=== PATIENT | female | born 1940 | race Caucasian/White ===

== ENCOUNTER → 2016-07-16 | Outpatient (CLI) | payer OTHER, BC ==
--- NOTE | 2016-07-16 09:37 | DIAGNOSTIC IMAGING REPORT ---
CHEST 2 VIEWS ROUTINE CLINICAL HISTORY: Persistent cough COMPARISON STUDY: No previous studies for comparison. FINDINGS: The cardiac and mediastinal contours are normal. There is no evidence of focal pulmonary consolidation. There is no evidence of failure. No pleural effusions are visualized.[ There is a mild scoliosis. The patient is mildly hyperinflated. IMPRESSION: No active disease in the chest. Electronically signed by: Mihai Nation M.D. 07/16/2016 9:35 AM Dictated Date/Time: 07/16/2016 9:35 AM
== END ==
LOC: C.RADBC 09:14
PROVIDERS: ATTEND Internal Medicine
DX: R05 Cough (principal)

== ENCOUNTER 2017-05-08 12:50 | Emergency (ER) | payer OTHER, BC ==
[~2017-05-08] VITALS: Ht 167.6 cm; Wt 60.3 kg
[2017-05-08 12:53] VITALS: Ht 167.6 cm; Wt 60.3 kg
--- NOTE | 2017-05-08 13:27 | EMERGENCY ROOM VISIT NOTE ---
History Report prepared by Violeta: Azra Kay Under the Supervision of: Dr. Lc Dunn M.D. First contact with patient: 12:59 Chief Complaint: FALL Stated Complaint: RIGHT SHOULDER PAIN FROM FALL History of Present Illness The patient is a 76 year old female who presents to the Emergency Room with complaints of an episode of fall around 12 hours ago. The patient had had some wine prior to bed yesterday. She got up around 12 hours ago and was feeling woozy. She fell onto her right arm. She has had pain in her right shoulder and has been unable to move her right arm. She denies any head injury or back pain. She denies any other injuries. She notes that she was diaphoretic and shaking after the fall. Source of History: patient Onset: 12 hours ago Position: other (global) Quality: other (fall) Timing: other (episodic) Associated Symptoms: + diaphoresis, No headache, No back pain Note: Pt reports shaking, right shoulder pain. Review of Systems See HPI for pertinent positives & negatives. A total of 10 systems reviewed and were otherwise negative. Past Medical & Surgical Medical Problems: (1) Hypothyroidism Family History No pertinent family history stated. Social History Smoking Status: Never Smoker Marital Status: single Occupation Status: retired Current/Historical Medications Scheduled Calcium Ascorbate (Vitamin C), 500 MG PO DAILY Calcium Carbonate-Cholecalcife (Caltrate 600+D), 1 TAB PO DAILY Levothyroxine Sodium (Levothyroxine Sodium), 0.5 TAB PO DAILY Liothyronine Sodium (Cytomel), 1 TAB PO DAILY Multivitamin (Multivitamin), 1 TAB PO DAILY Vitamin E (Vitamin E 100 Iu), 100 INTER.UNIT PO DAILY Allergies Coded Allergies: Codeine (Verified Adverse Reaction, Unknown, GI SYMPTOMS, 05/08/17) Physical Exam Vital Signs Date Time Temp Pulse Resp B/P (MAP) Pulse Ox O2 Delivery O2 Flow Rate FiO2 05/08/17 12:53 36.6 83 18 150/86 99 Room Air Physical Exam GENERAL: Patient is in no acute distress. HEENT: No acute trauma, normocephalic atraumatic, mucous membranes moist, no nasal congestion, no scleral icterus. NECK: No stridor, no adenopathy, no meningismus, trachea is midline. LUNGS: Clear to auscultation bilaterally, no wheeze, no rhonchi, breath sounds equal. HEART: Without murmurs gallops or rubs, regular rate and rhythm. ABDOMEN: Soft, nontender, bowel sounds positive, no hernias, no peritonitis. EXTREMITIES: Edema and contusion to the right shoulder. Entire shoulder especially along the anterior aspect is tender. Clinically there is no evidence for dislocation. Strong distal right radial pulse. NVI distally in the left and right upper extremity. Right elbow nontender. NEUROLOGIC: Oriented x 3, no acute motor or sensory deficits, no focal weakness. SKIN: No rash, no jaundice, no diaphoresis. Medical Decision & Procedures ER Provider Diagnostic Interpretation: X-ray results as stated below per interpretation by me and the radiologist: SINGLE VIEW CHEST CLINICAL HISTORY: Fall with right shoulder fracture. FINDINGS: An AP, portable, supine chest radiograph is compared to study dated 07/16/2016. The examination is degraded by portable technique and patient rotation. The cardiomediastinal silhouette is unremarkable. There is atherosclerotic calcification of the thoracic aorta. The lungs and pleural spaces are clear. No pneumothorax is seen. The skeletal structures are osteopenic. Mild degenerative change and scoliosis are noted in the thoracic spine. There is a distracted fracture through the right humeral neck. IMPRESSION: 1. There is no acute cardiopulmonary abnormality. 2. A distracted fracture is identified through the right humeral neck. Electronically signed by: Lc Young M.D. 05/08/2017 1:58 PM Dictated Date/Time: 05/08/2017 1:56 PM RIGHT HUMERUS 2 VIEWS; RIGHT SHOULDER 2 VIEWS CLINICAL HISTORY: Fall with right arm injury. FINDINGS: AP and lateral views of the right humerus with AP and lateral views of the right shoulder are obtained. No prior studies are available for comparison at the time of dictation. The skeletal structures are osteopenic. There is a distracted fracture through the humeral neck with medial distraction of the humeral shaft. The humeral head remains within the glenoid fossa. The acromioclavicular joint is preserved. The distal humerus appears intact and the elbow joint is grossly maintained. Soft tissue edema is present in the right upper extremity. The visualized right lung parenchyma appears clear. IMPRESSION: 1. There is a distracted fracture through the right humeral neck as above with overlying soft tissue edema. 2. The distal humerus is intact. Electronically signed by: Lc Young M.D. 05/08/2017 1:57 PM Dictated Date/Time: 05/08/2017 1:54 PM ED Course 1301: The patient was evaluated in room B12B. A complete history and physical exam was performed. 1406: I discussed the patient's case with Dr. De Anda, [facility] - orthopedic surgery. He recommends the patient be discharged home with a sling and a swathe to follow up as an outpatient. 1410: I reevaluated the patient. I discussed results and discharge instructions : she verbalized understanding and agreement. The patient is ready for discharge. Medical Decision Differential diagnoses considered include dislocation, fracture, sprain, contusion, rib injury, clavicle injury, neurovascular compromise. The patient presents after falling last evening. She complains of right shoulder pain. The area is contused and swollen. There is pain with movement of the shoulder in any direction. On exam, there was no clinical evidence for right shoulder dislocation. She had a strong distal right radial pulse and was neurovascularly intact distally in the right upper extremity. I found no evidence for injury elsewhere on exam. Films of the right shoulder and humerus were done, there is a right humeral neck fracture which is distracted and overriding. There is no evidence for shoulder dislocation. Chest film does not show evidence for rib fracture, pneumothorax or pulmonary contusion. The patient did not want anything for pain. She was placed in a sling and swath. I discussed the case with orthopedics. They felt that she could be discharged with outpatient follow-up. The patient was comfortable with this plan. She again, wants no pain medication. She was encouraged to return if worsening. Ice to the shoulder was encouraged. Medication Reconcilliation Current Medication List: was personally reviewed by me Blood Pressure Screening Patient's blood pressure: Elevated blood pressure Blood pressure disposition: Elevated BP felt to be situational Consults Time Called: 1401 Consulting Physician: Dr. De Anda, [facility] - orthopedic surgery Returned Call: [phone] I discussed the patient's case with him. He recommends the patient be discharged home with a sling and a swathe to follow up as an outpatient. Impression Primary Impression: Fracture of neck of right humerus Scribe Attestation The scribe's documentation has been prepared under my direction and personally reviewed by me in its entirety. I confirm that the note above accurately reflects all work, treatment, procedures, and medical decision making performed by me. Departure Information Dispostion Home / Self-Care Referrals Lalito Esqueda M.D. (PCP) Fidencio Dyer D.O. Forms HOME CARE DOCUMENTATION FORM, IMPORTANT VISIT INFORMATION Patient Instructions My [facility] Additional Instructions tylenol for pain wear the sling and swath all the time ice to the shoulder for 30 minutes on and 30 minutes off call orthopedics tomorrow am for an appt to be seen for this fracture return if worsening
[2017-05-08] MEDS ORDERED: VITA100C2 PO (13:31)
[2017-05-08] MEDS ORDERED: LEVO112T4 PO (13:31)
[2017-05-08] MEDS ORDERED: VITACAP37 PO (13:31)
[2017-05-08] MEDS ORDERED: MULT-506 PO (13:31)
[2017-05-08] MEDS ORDERED: LIOT1TAB10 PO (13:31)
[2017-05-08] MEDS ORDERED: CALC500T72 PO (13:31)
[2017-05-08] MEDS ORDERED: CALC-354 PO (13:32)
--- NOTE | 2017-05-08 13:58 | DIAGNOSTIC IMAGING REPORT ---
RIGHT HUMERUS 2 VIEWS; RIGHT SHOULDER 2 VIEWS CLINICAL HISTORY: Fall with right arm injury. FINDINGS: AP and lateral views of the right humerus with AP and lateral views of the right shoulder are obtained. No prior studies are available for comparison at the time of dictation. The skeletal structures are osteopenic. There is a distracted fracture through the humeral neck with medial distraction of the humeral shaft. The humeral head remains within the glenoid fossa. The acromioclavicular joint is preserved. The distal humerus appears intact and the elbow joint is grossly maintained. Soft tissue edema is present in the right upper extremity. The visualized right lung parenchyma appears clear. IMPRESSION: 1. There is a distracted fracture through the right humeral neck as above with overlying soft tissue edema. 2. The distal humerus is intact. Electronically signed by: Lc Young M.D. 05/08/2017 1:57 PM Dictated Date/Time: 05/08/2017 1:54 PM
--- NOTE | 2017-05-08 13:59 | DIAGNOSTIC IMAGING REPORT ---
SINGLE VIEW CHEST CLINICAL HISTORY: Fall with right shoulder fracture. FINDINGS: An AP, portable, supine chest radiograph is compared to study dated 07/16/2016. The examination is degraded by portable technique and patient rotation. The cardiomediastinal silhouette is unremarkable. There is atherosclerotic calcification of the thoracic aorta. The lungs and pleural spaces are clear. No pneumothorax is seen. The skeletal structures are osteopenic. Mild degenerative change and scoliosis are noted in the thoracic spine. There is a distracted fracture through the right humeral neck. IMPRESSION: 1. There is no acute cardiopulmonary abnormality. 2. A distracted fracture is identified through the right humeral neck. Electronically signed by: Lc Young M.D. 05/08/2017 1:58 PM Dictated Date/Time: 05/08/2017 1:56 PM
[2017-05-08 14:41] VITALS: BP 150/86; PULSE 83; TEMP 36.6; O2SAT 99
[2017-05-16] MEDS ORDERED: [UNRECOGNIZED DRUG - OTHER] PO (15:37)
[2017-05-16] MEDS ORDERED: ACET-1256 PO (15:39)
[2017-05-16] MEDS ORDERED: NAPR1TAB9 PO (15:39)
== END 2017-05-08 14:45 | disposition home or self-care (01) ==
LOC: C.EDB 12:51
DX: S42.201A Unspecified fracture of upper end of right humerus, initial encounter for closed fracture (principal); W19.XXXA Unspecified fall, initial encounter; E03.9 Hypothyroidism, unspecified; R03.0 Elevated blood-pressure reading, without diagnosis of hypertension

== ENCOUNTER 2017-05-18 10:10 | Inpatient (IN) | payer OTHER, BC ==
--- NOTE | 2017-05-16 12:49 | DIAGNOSTIC IMAGING REPORT ---
CHEST 2 VIEWS ROUTINE CLINICAL HISTORY: CLOSED FRACTURE OF SURGICAL NECK OF HUMERUS trauma COMPARISON STUDY: 05/08/2017 FINDINGS: Unchanged distracted/displaced fracture of the humeral neck on the right. Lungs remain clear. Diaphragms are smooth. Moderate Baseline emphysematous change. IMPRESSION: Displaced fracture right femoral neck. Moderate emphysematous change. No acute infiltrate. The above report was generated using voice recognition software. It may contain grammatical, syntax or spelling errors. Electronically signed by: Wally Hook M.D. 05/16/2017 12:48 PM Dictated Date/Time: 05/16/2017 12:46 PM
[2017-05-16 13:27] LABS: BASO % 0.6 %; BASO ABS # 0.03 K/uL (0-0.2); EOS % 1.6 %; EOS ABS # 0.08 K/uL (0-0.5); HEMATOCRIT 38.9 % (37-47); HEMOGLOBIN 12.9 g/dL (12.0-16.0); IG# 0.01 K/uL (0.00-0.02); LYMPH ABS # 1.11 K/uL (1.2-3.4); MEAN CELL VOLUME 92.6 fL (80-100); MEAN CORPUSCULAR HEMOGLOBIN 30.7 pg (25-34); MEAN CORPUSCULAR HGB CONC 33.2 g/dl (32-36); MEAN PLATELET VOLUME 9.4 fL (7.4-10.4); MONO % 8.1 %; MONO ABS # 0.41 K/uL (0.11-0.59); NEUT % 67.5 %; PLATELET COUNT 302 K/uL (130-400); RED CELL DISTRIBUTION WIDTH CV 13.6 % (11.5-14.5); RED CELL DISTRIBUTION WIDTH SD 45.7 fL (36.4-46.3); WHITE BLOOD COUNT 5.04 K/uL (4.8-10.8)
[2017-05-16 13:42] LABS: BLOOD UREA NITROGEN 19 mg/dl (7-18); CARBON DIOXIDE 29 mmol/L (21-32); GLUCOSE 91 mg/dl (70-99); SODIUM 137 mmol/L (136-145)
[2017-05-18] VITALS (9 sets, daily range): BP systolic 109–159; BP diastolic 65–77; PULSE 61–71; TEMP 36.3–36.8; O2SAT 95–100; Ht 167.6 cm; Wt 57.7 kg
[~2017-05-18] VITALS: Ht 167.6 cm; Wt 57.7 kg
--- NOTE | 2017-05-18 07:00 | HISTORY & PHYSICAL EXAMINATION ---
DATE OF ADMISSION: 05/18/2017 CHIEF COMPLAINT: Right proximal humerus fracture. HISTORY OF PRESENT ILLNESS: Emily is a pleasant 76-year-old female who fell at home about a week ago and landed on her right side. She had severe shoulder pain, went to [facility] Emergency Room on where x-rays showed a significantly displaced right proximal humerus fracture. They placed her in a arm sling. and she came to my office. She lives at home at home alone and she is still very functional. Given the amount of displacement of the fracture and after discussions with her, she elected to proceed with an open reduction internal fixation of the proximal humerus. PAST MEDICAL HISTORY: Significant for hypothyroidism and hyperlipidemia. PAST SURGICAL HISTORY: Significant for lymph node excision. ALLERGIES: CODEINE. MEDICATIONS: Levoxyl, and Cytomel. FAMILY HISTORY: Denies. SOCIAL HISTORY: She lives alone, rarely drinks and stays very active. REVIEW OF SYSTEMS: She complains of right shoulder pain. All other pertinent review of systems are negative. PHYSICAL EXAMINATION: She is currently in an arm sling. Her radial, median and ulnar nerves were checked and intact at her wrist. Her axillary nerve was not definitively checked, but she has good sensation laterally. She has minimal ecchymosis in the area. I did not do any range of motion of her shoulder. She has full range of motion of her wrist and elbow. IMAGING: X-rays of the right shoulder do show a displaced fracture of the surgical neck of the right proximal humerus. IMPRESSION: Right proximal humerus fracture. PLAN: We will proceed with open reduction internal fixation of the right proximal humerus. Postoperatively, I will keep her overnight at the hospital and likely send her home the next day.
[~2017-05-18 10:10] MED LIST: ACET-1256 PO; ACETAMINOPHEN 500 MG TAB PO SCH; BUPIVACAINE 0.5 % 5 MG/1 ML PF 10ML VIAL ONE; CALC-354 PO; CALC500T72 PO; CEFAZOLIN 2000MG IV PUSH 10 ML IV SCH; CLONIDINE HCL 100 MCG/ML SYRINGE ONE; FAMOTIDINE 20 MG TAB PO SCH; GABAPENTIN 300 MG CAP PO SCH; LACTATED RINGER'S 1000ML 1,000 ML IV SCH; LACTATED RINGER'S 1000ML IV SCH; LEVO112T4 PO; LIOT1TAB10 PO; MEPIVACAINE HCL 1.5% 30 ML VIAL ONE; MULT-506 PO; NAPR1TAB9 PO; VITA100C2 PO; [UNRECOGNIZED DRUG - OTHER] PO
[2017-05-18] MEDS ORDERED: GLYCOPYRROLATE INJ 0.2 MG/ML VIAL ONE ×3 (12:03→14:50)
[2017-05-18] MEDS ORDERED: NEOSTIGMINE METHYLSULFATE 5 MG/5 ML SYR ONE ×2 (12:03→14:29)
[2017-05-18] MEDS ORDERED: LARYING-O-JET KIT (LTA) ONE (12:03)
[2017-05-18] MEDS ORDERED: LIDOCAINE HCL 2% 2 ML VIAL (20MG/ML) ONE (12:03)
[2017-05-18] MEDS ORDERED: PROPOFOL IV EMULSION 10 MG/ML 20 ML VIAL IV ONE (12:03)
[2017-05-18] MEDS ORDERED: FENTANYL CITRATE INJ 50 MCG/1 ML 2 ML VIAL ONE (12:03)
[2017-05-18] MEDS ORDERED: CISATRACURIUM BESYLATE IV SOLN 2 MG/ML 10 ML VIAL ONE (12:03)
[2017-05-18] MEDS ORDERED: MIDAZOLAM HCL 1 MG/ML 2ML VIAL ONE (12:03)
[2017-05-18] MEDS ORDERED: ONDANSETRON INJ 2 MG/ML 2 ML VIAL ONE ×2 (12:04→13:56)
[2017-05-18] MEDS ORDERED: DEXAMETHASONE SOD INJ 4 MG/ML VIAL ONE ×2 (12:04→13:56)
--- NOTE | 2017-05-18 12:04 | History & Physical Bridge Note ---
H&P Re-Evaluation Bridge Note: I have examined the patient, reviewed the History & Physical and in the interval since the performance of the History & Physical I have noted the following changes of clinical significance: No changes noted
[2017-05-18] MEDS ORDERED: BUPIVACAINE 0.5 % 5 MG/1 ML MPF 30ML VIAL ONE (12:26)
[2017-05-18] MEDS ORDERED: EpINEphrine HCL INJ 1 MG/ML 5ML SYRINGE ONE (12:27)
[2017-05-18] MEDS ORDERED: SODIUM CHLORIDE 0.9% INJ 10 ML VIAL ONE (13:29)
[2017-05-18] MEDS ORDERED: EpHEDrine SULFATE 50MG/5ML SYR ONE (13:29)
[2017-05-18] MEDS ORDERED: ATROPINE SULFATE 0.1 MG/ML 5ML SYR IV PRN (13:45)
[2017-05-18] MEDS ORDERED: PROMETHAZINE HCL INJ 6.25 MG in SODIUM CHLORIDE 0.9% 50ML 50 ML IV PRN (13:45)
[2017-05-18] MEDS ORDERED: EpHEDrine SULFATE INJ 50 MG/ML AMP IV PRN (13:45)
[2017-05-18] MEDS ORDERED: ONDANSETRON INJ 2 MG/ML 2 ML VIAL IV PRN ×2 (13:45→14:30)
[2017-05-18] MEDS ORDERED: FENTANYL CITRATE INJ 50 MCG/1 ML 2 ML VIAL IV PRN (13:45)
--- NOTE | 2017-05-18 14:27 | [facility] Post Operative Brief Note ---
Immediate Operative Summary Operative Date May 18, 2017. Pre-Operative Diagnosis Right Proximal Humerus Fracture Post-Operative Diagnosis Right Proximal Humerus Fracture Procedure(s) Performed Right Proximal Humerus Open Reduction Internal Fixation Surgeon Dr Bell Per Diem Physical Therapist Assistant Surgeon(s) Christian Leos PA-C Estimated Blood Loss 150cc Findings as above Specimens None Per Surgeon Complication(s) None Disposition Recovery Room / PACU
[2017-05-18] MEDS ORDERED: BISACODYL 10 MG SUPP PR PRN (14:30)
[2017-05-18] MEDS ORDERED: SOD PHOSPHATE/SOD BIPHOSPHATE ENEMA 132 ML BTL PR PRN (14:30)
[2017-05-18] MEDS ORDERED: METOCLOPRAMIDE HCL INJ 5 MG/ML 2 ML VIAL IV PRN (14:30)
[2017-05-18] MEDS ORDERED: MAGNESIUM HYDROXIDE SUSP 30 ML UDC PO PRN (14:30)
[2017-05-18] MEDS ORDERED: CEFAZOLIN IV 1,000 MG in DEXTROSE 5% 50ML 50 ML IV SCH (14:30)
[2017-05-18] MEDS ORDERED: TRAMADOL HCL 50 MG TAB PO PRN (14:30)
--- NOTE | 2017-05-18 14:46 | DIAGNOSTIC IMAGING REPORT ---
INTRAOPERATIVE RADIOGRAPHS CLINICAL HISTORY: Open reduction and internal fixation of the right proximal humerus. Fluoroscopy time: 50 seconds. FINDINGS: 2 spot fluoroscopic views of the right shoulder are correlated with shoulder radiographs dated 05/15/2017. There has been buttress plate fixation of a right humeral neck fracture with catholic of near-anatomic alignment. Numerous cortical lag screws transfix the buttress plate. The orthopedic hardware appears intact. IMPRESSION: Intraoperative images from open reduction and internal fixation of a right humeral neck fracture as above. Electronically signed by: Lc Young M.D. 05/18/2017 2:45 PM Dictated Date/Time: 05/18/2017 2:44 PM
--- NOTE | 2017-05-18 14:47 | DIAGNOSTIC IMAGING REPORT ---
INTRAOPERATIVE RADIOGRAPHS CLINICAL HISTORY: Open reduction and internal fixation of the right proximal humerus. Fluoroscopy time: 50 seconds. FINDINGS: 2 spot fluoroscopic views of the right shoulder are correlated with shoulder radiographs dated 05/15/2017. There has been buttress plate fixation of a right humeral neck fracture with gnosticism of near-anatomic alignment. Numerous cortical lag screws transfix the buttress plate. The orthopedic hardware appears intact. IMPRESSION: Intraoperative images from open reduction and internal fixation of a right humeral neck fracture as above. Electronically signed by: Lc Young M.D. 05/18/2017 2:45 PM Dictated Date/Time: 05/18/2017 2:44 PM
--- NOTE | 2017-05-18 15:02 | OPERATIVE REPORT ---
DATE OF OPERATION: 05/18/2017 PREOPERATIVE DIAGNOSIS: Displaced right proximal humerus fracture. POSTOPERATIVE DIAGNOSIS: Same. PROCEDURE: Open reduction internal fixation right proximal humerus. SURGEON: Dr. Harlan Bell. [employer]BILE: Christian Leos PA-C, whose assistance was necessary for positioning the arm and helping with retraction and closure. ANESTHESIA: General with a right interscalene nerve block. COMPLICATIONS: None. CONDITION: Stable to PACU. IMPLANTS USED: I used a Synthes proximal humeral locking plate. INDICATIONS: Emily is a pleasant 76-year-old female who fell at home about a week ago sustaining a fracture of the surgical neck of her right humerus. Initial attempted conservative treatment failed. The fracture displaced further and she elected to undergo open reduction internal fixation. OPERATION AND FINDINGS: On 05/18/2017, she arrived at [facility] for the above procedure. She was seen in the preoperative holding area and the operative extremity was identified and signed. She was given a preoperative antibiotic and a right interscalene nerve block. She was taken back to the operating room, laid on the table in supine position and put under general anesthesia. The right shoulder was prepped and draped in sterile fashion. Time-out was done and the patient's operative extremity was properly identified. A deltopectoral approach was used. Dissection was taken down through the fascia and through the deltopectoral interval. The conjoined tendon was retracted medially and the deltoid retracted laterally. The long head of the biceps tendon was first identified. I was able to match up the bicipital groove. Once I had that lined up anatomically I took a 3-hole Synthes proximal humeral locking plate and slid it on the lateral aspect of the humerus. I used fluoroscopy to determine the appropriate placement of the plate. Once I was happy with the placement I placed a single compressive screw in the combination hole. I then placed multiple pins in the proximal portion. Fluoroscopic images showed near anatomic alignment of the humeral head and good placement of the plate. Locking screws were then placed proximally. Locking screw lengths were checked under fluoroscopy. Locking screws were placed distally and the compressive screw was replaced with a locking screw. Final fluoroscopic images showed anatomic alignment of the fracture. The wound was then irrigated and the biceps tendon was tenotomized off the biceps anchor and tenodesed to the upper border of the pec major. The shoulder was brought through a full range of motion and everything seemed to move nicely. The skin was then closed with 2-0 Vicryl, 3-0 V-Loc suture and uri. She was then placed in a soft compressive dressing and a regular arm sling. She was then extubated, transferred to a [facility] and taken to the postanesthesia care unit in stable condition. She tolerated the procedure well. I attest to the content of the Intraoperative Record and any orders documented therein. Any exception s are noted below.
--- NOTE | 2017-05-18 15:17 | Anesthesiology Progress Note ---
Anesthesia Post Op Note Date & Time May 18, 2017 at 15:17 Vital Signs Pain Intensity: 0 Vital Signs Past 12 Hours Date Time Temp Pulse Resp B/P (MAP) Pulse Ox O2 Delivery O2 Flow Rate FiO2 05/18/17 15:15 36.3 72 20 132/76 99 Oxymask 3 05/18/17 15:05 74 20 125/87 99 Oxymask 3 05/18/17 14:55 80 20 150/83 100 Oxymask 5 05/18/17 14:46 36.0 85 20 163/77 100 Oxymask 5 05/18/17 10:40 36.8 71 20 123/71 98 Room Air Notes Mental Status: alert / awake / arousable, participated in evaluation Pt Amnestic to Procedure: Yes Nausea / Vomiting: adequately controlled Pain: adequately controlled Airway Patency, RR, SpO2: stable & adequate BP & HR: stable & adequate Hydration State: stable & adequate Anesthetic Complications: no major complications apparent Block working well in pacu
[2017-05-18] MEDS: POTASSIUM CHLORIDE INJ 10 MEQ in SODIUM CHLORIDE 0.9% 1000ML 1,000 ML IV SCH (17:41)
[2017-05-18] MEDS: KETOROLAC TROMETHAMINE 15 MG/ML VIAL IV. SCH (17:42)
[2017-05-18] MEDS: CEFAZOLIN IV 1,000 MG in SYRINGE 0 ML IV SCH (20:25)
[2017-05-18] MEDS: ACETAMINOPHEN IV 1,000 MG in EMPTY BAG 0 ML IV SCH (20:26)
[2017-05-18] MEDS: SENNA 8.6 MG TAB PO SCH (20:41)
[2017-05-18] MEDS: ASCORBIC ACID 500 MG TAB PO SCH (20:41)
[2017-05-18] MEDS: DOCUSATE SODIUM 100 MG CAP PO SCH (20:41)
[2017-05-19] MEDS: KETOROLAC TROMETHAMINE 15 MG/ML VIAL IV. SCH ×4 (00:02→18:55)
[2017-05-19] MEDS: POTASSIUM CHLORIDE INJ 10 MEQ in SODIUM CHLORIDE 0.9% 1000ML 1,000 ML IV SCH ×2 (02:50→12:33)
[2017-05-19 03:46] VITALS: BP 129/80; PULSE 65; TEMP 36.4; O2SAT 97
[2017-05-19] MEDS: ACETAMINOPHEN IV 1,000 MG in EMPTY BAG 0 ML IV SCH ×2 (03:57→12:05)
[2017-05-19] MEDS: CEFAZOLIN IV 1,000 MG in SYRINGE 0 ML IV SCH (03:58)
[2017-05-19] MEDS: LEVOTHYROXINE 112 MCG TAB PO SCH (05:51)
[2017-05-19 06:19] LABS: HEMOGLOBIN 11.2 g/dL (12.0-16.0); MEAN CELL VOLUME 91.2 fL (80-100); MEAN CORPUSCULAR HEMOGLOBIN 30.9 pg (25-34); MEAN CORPUSCULAR HGB CONC 33.9 g/dl (32-36); PLATELET COUNT 246 K/uL (130-400); RED CELL DISTRIBUTION WIDTH CV 13.6 % (11.5-14.5); RED CELL DISTRIBUTION WIDTH SD 44.6 fL (36.4-46.3); WHITE BLOOD COUNT 9.06 K/uL (4.8-10.8)
[2017-05-19 06:50] LABS: CALCIUM 8.3 mg/dl (8.5-10.1); CREATININE 0.9 mg/dl (0.60-1.20); POTASSIUM 4.6 mmol/L (3.5-5.1)
[2017-05-19 07:05] VITALS: BP 112/65; PULSE 68; TEMP 36.8; O2SAT 96
--- NOTE | 2017-05-19 08:33 | Anesthesiology Progress Note ---
Anesthesia Post Op Note Date & Time May 19, 2017 at 08:32 Vital Signs Pain Intensity: 0.0 Vital Signs Past 12 Hours Date Time Temp Pulse Resp B/P (MAP) Pulse Ox O2 Delivery O2 Flow Rate FiO2 05/19/17 07:05 Room Air 05/19/17 07:05 36.8 68 16 112/65 (81) 96 Room Air 05/19/17 03:46 36.4 65 15 129/80 (96) 97 Room Air 05/19/17 00:00 Room Air 05/18/17 23:10 36.4 62 17 122/76 (91) 97 Room Air Notes Mental Status: alert / awake / arousable, participated in evaluation Pt Amnestic to Procedure: Yes Nausea / Vomiting: adequately controlled Pain: adequately controlled Airway Patency, RR, SpO2: stable & adequate BP & HR: stable & adequate Hydration State: stable & adequate Anesthetic Complications: no major complications apparent
[2017-05-19] MEDS: LIOTHYRONINE SODIUM 5 MCG TAB PO SCH (08:46)
[2017-05-19] MEDS: TOCOPHERYL, DL-ALPHA 100 INTERUNIT CAP PO SCH (08:47)
[2017-05-19] MEDS: CALCIUM 600MG + VIT D 400 IU TAB PO SCH (08:47)
[2017-05-19] MEDS: MULTIVITAMIN TAB PO SCH (08:47)
[2017-05-19] MEDS: DOCUSATE SODIUM 100 MG CAP PO SCH ×2 (08:47→22:01)
[2017-05-19 10:52] VITALS: BP 113/59; PULSE 70; TEMP 36.8; O2SAT 93
[2017-05-19] MEDS ORDERED: NURSING VERBAL MED ORDER ONE (14:00)
[2017-05-19] MEDS ORDERED: ACETAMINOPHEN 500 MG TAB PO PRN (14:00)
--- NOTE | 2017-05-19 14:19 | Discharge Instructions ---
Discharge Instructions Date of Service May 19, 2017. Admission Reason for Admission: Closed Fracture of Surgical Neck of Humerus Discharge Discharge Diagnosis / Problem: Plate fixation Right shoulder Discharge Goals Goal(s): Decrease discomfort Activity Recommendations Activity Limitations: as noted below . Instructions / Follow-Up Instructions / Follow-Up sling for 6 weeks, may use hand/wrist/and elbow, may shower 5 days from the day of surgery, Follow-up in 2 weeks for suture removal Current Hospital Diet Patient's current hospital diet: Gluten Free Diet Discharge Diet Recommended Diet: Gluten Free Diet Procedures Procedures Performed: Right Proximal Humerus Open Reduction Internal Fixation Pending Studies Studies pending at discharge: no Medical Emergencies . Who to Call and When: Medical Emergencies: If at any time you feel your situation is an emergency, please call 911 immediately. . Non-Emergent Contact Non-Emergency issues call your: Surgeon Call Non-Emergent contact if: wound has increased drainage, wound has increased redness . "Provider Documentation" section prepared by Harlan Bell. . VTE Core Measure Inpt VTE Proph given/why not?: Treatment not indicated
--- NOTE | 2017-05-19 14:31 | PROGRESS NOTE ---
DATE: 05/19/2017 CHIEF COMPLAINT: Status post ORIF of the right proximal humerus, postop day #1. PROGRESS: Emily was seen and examined at bedside today. Overall, she is doing fairly well. She is having some soreness in the shoulder and she feels very tired, otherwise she has no complaints. PHYSICAL EXAMINATION: RIGHT SHOULDER: The dressing is clean and dry. She is wearing a right arm sling. Her radial, median and ulnar nerves were checked and intact. Her axillary nerve was not definitively checked yet. IMPRESSION: Status post open reduction external fixation of the right shoulder, postoperative day #1. PLAN: At this point, she is doing fairly well. Will continue Tylenol orally for pain control. They can discontinue her IV fluids. She can be up and ambulating, I do not want any motion of the shoulder. She does live alone. She will work on pain control tomorrow and will look at discharge her to [facility] on Monday.
[2017-05-19 15:34] VITALS: BP 102/63; PULSE 76; TEMP 36.8; O2SAT 95
[2017-05-19] MEDS: ASCORBIC ACID 500 MG TAB PO SCH (22:01)
[2017-05-19] MEDS: SENNA 8.6 MG TAB PO SCH (22:01)
[2017-05-19 23:14] VITALS: BP 111/70; PULSE 69; TEMP 37; O2SAT 96
[2017-05-20] MEDS: KETOROLAC TROMETHAMINE 15 MG/ML VIAL IV. SCH ×3 (00:02→11:59)
[2017-05-20] MEDS: LEVOTHYROXINE 112 MCG TAB PO SCH (05:52)
[2017-05-20 07:09] VITALS: BP 109/72; PULSE 68; TEMP 36.9; O2SAT 95
[2017-05-20 07:15] LABS: MEAN CELL VOLUME 92.4 fL (80-100); MEAN CORPUSCULAR HEMOGLOBIN 30.8 pg (25-34); MEAN CORPUSCULAR HGB CONC 33.3 g/dl (32-36); MEAN PLATELET VOLUME 9.1 fL (7.4-10.4); PLATELET COUNT 253 K/uL (130-400); RED CELL DISTRIBUTION WIDTH CV 13.9 % (11.5-14.5); RED CELL DISTRIBUTION WIDTH SD 46.1 fL (36.4-46.3)
[2017-05-20 07:46] LABS: CALCIUM 8.4 mg/dl (8.5-10.1); CREATININE 0.9 mg/dl (0.60-1.20); POTASSIUM 4.3 mmol/L (3.5-5.1)
--- NOTE | 2017-05-20 07:56 | PROGRESS NOTE ---
DATE: 05/20/2017 CHIEF COMPLAINT: Status post ORIF of the right proximal humerus postop day #2. PROGRESS: Emily was seen and examined at bedside today. Overall, she is doing fairly well. She has chronic urinary frequency which is keeping her up at night, but that is nothing new. Her shoulder is feeling okay with the Tylenol and ibuprofen. She has no complaints. PHYSICAL EXAMINATION: RIGHT SHOULDER: The dressing is clean and dry. She is wearing her sling as instructed. Her radial, median and ulnar nerves were all checked and intact at her wrist. Her axillary nerve was not definitively checked yet. IMPRESSION: Status post open reduction internal fixation of the right proximal humerus postop day #2. PLAN: We will keep her for another day just to make sure she is up and ambulating better and her pain is well controlled. She does live at home alone. We are awaiting placement to [facility]. If she gets placement tomorrow, she can be discharged tomorrow on oral pain medications.
[2017-05-20] MEDS: LIOTHYRONINE SODIUM 5 MCG TAB PO SCH (09:20)
[2017-05-20] MEDS: DOCUSATE SODIUM 100 MG CAP PO SCH ×2 (09:20→20:59)
[2017-05-20] MEDS: TOCOPHERYL, DL-ALPHA 100 INTERUNIT CAP PO SCH (09:21)
[2017-05-20] MEDS: CALCIUM 600MG + VIT D 400 IU TAB PO SCH (09:41)
[2017-05-20] MEDS: MULTIVITAMIN TAB PO SCH (09:42)
[2017-05-20 15:31] VITALS: BP 136/81; PULSE 72; TEMP 36.6; O2SAT 96
[2017-05-20] MEDS: ASCORBIC ACID 500 MG TAB PO SCH (21:00)
[2017-05-20] MEDS: SENNA 8.6 MG TAB PO SCH (21:00)
[2017-05-20 23:09] VITALS: BP 121/70; PULSE 74; TEMP 36.6; O2SAT 97
[2017-05-21] MEDS: LEVOTHYROXINE 112 MCG TAB PO SCH (05:17)
[2017-05-21 06:55] VITALS: BP 136/82; PULSE 73; TEMP 36.6; O2SAT 94
[2017-05-21] MEDS: MULTIVITAMIN TAB PO SCH (09:08)
[2017-05-21] MEDS: CALCIUM 600MG + VIT D 400 IU TAB PO SCH (09:08)
[2017-05-21] MEDS: LIOTHYRONINE SODIUM 5 MCG TAB PO SCH (09:08)
[2017-05-21] MEDS: DOCUSATE SODIUM 100 MG CAP PO SCH (09:08)
[2017-05-21] MEDS: TOCOPHERYL, DL-ALPHA 100 INTERUNIT CAP PO SCH (09:09)
[2017-05-21 09:16] VITALS: BP 136/82; PULSE 73; TEMP 36.6; O2SAT 94
--- NOTE | 2017-05-21 22:12 | DISCHARGE SUMMARY ---
DISCHARGE DIAGNOSIS: 2-part displaced right proximal humerus fracture. PROCEDURE: Open reduction internal fixation of the right proximal humerus on 05/18/[address] Harlan Bell. DISCHARGE INSTRUCTIONS: 1. Tylenol 1000 mg as needed for pain, Aleve 220 mg as needed for pain, Cytomel 5 mg in the morning, Synthroid 56 mcg daily and continue all other vitamins and minerals supplementations. 2. Right arm sling for 6 weeks. 3. Follow up with Dr. Bell in 2 weeks. 4. Call the office of Dr. Bell with any questions or concerns. HOSPITAL COURSE: Emily is a pleasant 76-year-old female who fell about a week ago on her right shoulder. She sustained a displaced right proximal humerus fracture. She elected to undergo open reduction internal fixation. On 05/18/2017, she arrived at [facility] and underwent an ORIF of her right proximal humerus without complication. She had a general anesthetic and a right interscalene nerve block. Postoperatively, she was placed in an arm sling and discharged to general orthopedic floor. Her hospital course was uneventful. On postop day #1, her H&H was stable at 11.2 and 33.0. She was able to do hand, wrist and elbow exercises with physical therapy and was able to ambulate. She was having some pain in her shoulder. On postop day #2, she was still having some pain in the shoulder, but she was doing okay. Her vital signs were stable. She was able to ambulate well again with physical therapy. On postop day #3, she continued to do very well. Her pain was controlled. She was wearing her sling as instructed and she was subsequently discharged to [facility] with the above instructions.
== END 2017-05-21 12:13 | DRG 494 ==
LOC: C.ACU 10:10 → C.3E 12:00 → ENRESERV 15:19
PROVIDERS: ADMIT Orthopaedic Surgery; ATTEND Orthopaedic Surgery
PROC: 0PSF04Z Reposition Right Humeral Shaft with Internal Fixation Device, Open Approach (ICD-10-PCS; principal; 2017-05-18 12:30)
DX: S42.211A Unspecified displaced fracture of surgical neck of right humerus, initial encounter for closed fracture (principal); E03.9 Hypothyroidism, unspecified; E78.5 Hyperlipidemia, unspecified; Z79.899 Other long term (current) drug therapy; W19.XXXA Unspecified fall, initial encounter

== ENCOUNTER → 2017-09-20 | Outpatient (CLI) | payer OTHER ==
[~2017-09-20] MED LIST changes: -ACETAMINOPHEN 500 MG TAB PO SCH; -BUPIVACAINE 0.5 % 5 MG/1 ML PF 10ML VIAL ONE; -CEFAZOLIN 2000MG IV PUSH 10 ML IV SCH; -CLONIDINE HCL 100 MCG/ML SYRINGE ONE; -FAMOTIDINE 20 MG TAB PO SCH; -GABAPENTIN 300 MG CAP PO SCH; -LACTATED RINGER'S 1000ML 1,000 ML IV SCH; -LACTATED RINGER'S 1000ML IV SCH; -MEPIVACAINE HCL 1.5% 30 ML VIAL ONE
== END | disposition home or self-care (01) ==
LOC: C.LAB 08:20
PROVIDERS: ATTEND Family Medicine
DX: R53.83 Other fatigue (principal)